=== PATIENT | male | born 1960 | race Caucasian/White ===

== ENCOUNTER 2018-06-05 10:56 | Emergency (ER) | payer MEDICAID ==
[~2018-06-05] VITALS: Ht 185.4 cm; Wt 110.0 kg
[2018-06-05 11:04] VITALS: BP 143/99
[2018-06-05] MEDS ORDERED: SULF1TAB49 PO (12:21)
== END 2018-06-05 12:37 | disposition home or self-care (01) ==
LOC: ER 10:57
DX: L02.512 Cutaneous abscess of left hand (principal); F12.90 Cannabis use, unspecified, uncomplicated; Z98.890 Other specified postprocedural states; Z79.2 Long term (current) use of antibiotics
CPT/HCPCS: 26010; 87070; 87077; 87186; 99284